=== PATIENT | female | born 1975 | race Two or more races ===

== ENCOUNTER 2017-10-05 11:01 | Emergency (ER) | payer OTHER ==
[~2017-10-05] VITALS: Ht 167.6 cm; Wt 104.3 kg
[2017-10-05 11:08] VITALS: Ht 167.6 cm; Wt 104.3 kg
[2017-10-05 14:12] VITALS: BP 144/94
== END 2017-10-05 14:12 | disposition home or self-care (01) ==
LOC: ED 11:01
DX: K04.7 Periapical abscess without sinus (principal)
CPT/HCPCS: J2543

== ENCOUNTER 2019-09-12 07:20 | Emergency (ER) | payer OTHER ==
[~2019-09-12] VITALS: Ht 167.6 cm; Wt 98.4 kg
[2019-09-12 08:04] VITALS: BP 147/85; Ht 167.6 cm; Wt 98.4 kg
== END 2019-09-12 10:00 | disposition home or self-care (01) ==
LOC: ED 07:20
DX: L03.211 Cellulitis of face (principal); H01.009 Unspecified blepharitis unspecified eye, unspecified eyelid; S00.86XA Insect bite (nonvenomous) of other part of head, initial encounter